=== PATIENT | male | born 1990 | race Caucasian/White ===

== ENCOUNTER → 2016-10-26 | Outpatient (CLI) | payer BC ==
[~2016-10-26] MED LIST: VITAMIN B125000 MCG PO; VITAMIN D2000 UNIT PO
== END | disposition home or self-care (01) ==
LOC: CDC 10:24
DX: R00.1 Bradycardia, unspecified (principal); Z51.81 Encounter for therapeutic drug level monitoring
CPT/HCPCS: 93000

== ENCOUNTER 2017-01-26 07:41 | Day surgery (SDC) | payer BC ==
[~2017-01-26] VITALS: Ht 185.4 cm; Wt 106.6 kg
[~2017-01-26 07:41] MED LIST changes: +GILENYA0.5 MG PO
[2017-01-26 08:48] VITALS: BP 155/91
[2017-01-26] MEDS ORDERED: PERCOCET 5/31 TABLET PO (10:44)
[2017-01-26 11:35] VITALS: BP 134/81
[2017-01-26 12:28] VITALS: BP 124/78
== END 2017-01-26 12:32 | disposition home or self-care (01) ==
LOC: SDC
PROC: 0FT44ZZ Resection of Gallbladder, Percutaneous Endoscopic Approach (ICD-10-PCS; principal; 2017-01-26)
DX: K80.10 Calculus of gallbladder with chronic cholecystitis without obstruction (principal); R94.31 Abnormal electrocardiogram [ECG] [EKG]; F17.210 Nicotine dependence, cigarettes, uncomplicated; Z82.49 Family history of ischemic heart disease and other diseases of the circulatory system; Z80.42 Family history of malignant neoplasm of prostate; Z84.1 Family history of disorders of kidney and ureter; Z88.0 Allergy status to penicillin
CPT/HCPCS: 88304; J0330; J0690; J1170; J2405; J2710; J3010